=== PATIENT | male | born 1995 | race African-American/Black ===

== ENCOUNTER → 2017-06-11 15:04 | Outpatient (POV) | payer OTHER, SELFPAY ==
[2017-06-11 16:57] LABS: Basophils % 0.4 % (0.1-2.0); Eosinophils # 0.1 K/mm3 (0.0-0.4); Hematocrit 44.8 % (42.0-52.0); Hemoglobin 15.2 g/dL (14.1-18.0); Lymphocytes # 3.1 K/mm3 (0.7-4.5); Lymphocytes % 37.5 K/mm3 (10-50); Mean Corpuscular HGB Conc 33.8 g/dL (31.8-35.4); Mean Corpuscular Hemoglobin 27.6 pg (27.0-31.2); Mean Corpuscular Volume 81.7 fl (80-94); Monocytes # 0.6 K/mm3 (0.1-1.0); Monocytes % 7.2 % (1.7-9.3); Neutrophils # 4.4 K/mm3 (1.8-7.8); Neutrophils % 53.9 % (37.0-80.0); Platelet Count 297 K/mm3 (142-424); Red Blood Count 5.48 M/mm3 (4.60-6.20); Red Cell Distribution Width 13.1 % (11.5-17.5); White Blood Count 8.2 K/mm3 (4.8-10.8)
[2017-06-11 18:20] LABS: Erythrocyte Sedimentation Rate 8 mm/hr (0-15)
[2017-06-11 19:15] LABS: Alanine Aminotransferase 39 U/L (12-78); Albumin Level 4.2 gm/dL (3.4-5.0); Albumin/Globulin Ratio 1.1 (1.1-1.8); Alkaline Phosphatase 99 U/L (46-116); Anion Gap 14.7 mEq/L (5-15); Bilirubin,Total 0.3 mg/dL (0.2-1.0); Blood Urea Nitrogen 16 mg/dL (7-18); Calcium 9.1 mg/dL (8.5-10.1); Carbon Dioxide 25 mmol/L (21.0-32.0); Chloride 103 mmol/L (98-107); Creatinine,Serum 0.98 mg/dL (0.70-1.30); Estimated Glomerular Filt Rate 95 ml/min (>60); GFR (African American) 115 ML/MIN (>60); Globulin 3.7 gm/dl (1.3-3.2); Glucose 83 mg/dL (74-106); Sodium 139 mmol/L (136-145); Total Protein,Serum 7.9 gm/dL (6.4-8.2)
[2017-06-11 19:36] LABS: Aspartate Amino Transferase 26 U/L (15-37); Potassium 3.7 mmoL/L (3.5-5.1)
[2017-06-14 22:59] LABS: Blastomyces Antibody Negative (Neg:<1:1)
[2017-06-15 20:10] LABS: Aspergillus flavus Negative (Neg:<1:1); Aspergillus fumigatus Negative (Neg:<1:1); Aspergillus niger Negative (Neg:<1:1)
== END ==
PROVIDERS: Visit Provider Internal Medicine
DX: R91.8 Other nonspecific abnormal finding of lung field (principal); R59.1 Generalized enlarged lymph nodes
CPT/HCPCS: 36415; 80053; 85025; 85651; 86171

== ENCOUNTER → 2018-07-15 08:15 | Outpatient (CLI) | payer OTHER, SELFPAY ==
--- NOTE | 2018-07-15 08:29 | CT_ITS ---
CT chest w con HISTORY: Follow-up pulmonary nodule ITS.REASON: LUNG NODULE ORDERING PHYSICIAN: Any Aranda PATIENT AGE: 23 years COMPARISON: 04/30/2017 TECHNIQUE: Axial images obtained following the administration of 75 mL of Optiray 350 . Sagittal, and coronal reformatted images are also generated and reviewed. All CT scans at the facility use one or more dose reduction, viz: automated exposure control, ma/kV adjustment per patient size (including targeted exams where dose is matched to indication, i.e. head), or iterative reconstruction technique. FINDINGS: There is some soft tissue density noted in the anterior mediastinum consistent with finding tissue. Small nodes are once again identified in the mediastinum on the left and in the left hilum. This has shown some improvement compared to previous enhanced exam of 11/21/2016. There is mild gynecomastia. Minimal subpleural opacity is noted in the right lower lobe posteriorly nonspecific 6 mm. The left there are numerous noncalcified pulmonary nodules in the left upper lobe laterally. The largest of the nodular opacities is approximately 1 2-cm in width. These do not appear significantly changed possibly due to old granulomatous infection. No cavitation. No spiculation. No lobar consolidation or collapse. No effusions. Upper abdominal images are unremarkable. IMPRESSION: 1. Overall no significant change in the numerous left upper lobe nodules. The mediastinal and hilar adenopathy has shown some improvement since 11/21/2016. 2. There is a 6 mm subpleural opacity in the right lower lobe posteriorly. This is nonspecific and may be due to a small area of atelectasis.
== END ==
PROVIDERS: PCP Internal Medicine Adolescent Medicine; Visit Provider Nurse Practitioner Family
DX: R91.8 Other nonspecific abnormal finding of lung field (principal)
CPT/HCPCS: 71260

== ENCOUNTER → 2019-02-10 16:21 | Outpatient (CLI) | payer OTHER, SELFPAY ==
[2019-02-10 16:48] LABS: Basophils % 0.3 % (0.1-2.0); Eosinophils % 0.5 % (0.1-12.0); Hematocrit 46.5 % (42.0-52.0); Hemoglobin 15.7 g/dL (14.1-18.0); Lymphocytes # 3.2 K/mm3 (0.7-4.5); Lymphocytes % 41.7 % (10-50); Mean Corpuscular HGB Conc 33.7 g/dL (31.8-35.4); Mean Corpuscular Hemoglobin 28.4 pg (27.0-31.2); Mean Corpuscular Volume 84.3 fl (80-94); Mean Platelet Volume 7.9 fl (7.4-10.4); Monocytes # 0.5 K/mm3 (0.1-1.0); Monocytes % 6.4 % (1.7-9.3); Neutrophils # 3.9 K/mm3 (1.8-7.8); Platelet Count 292 K/mm3 (142-424); Red Blood Count 5.51 M/mm3 (4.60-6.20); White Blood Count 7.6 K/mm3 (4.8-10.8)
[2019-02-10 17:19] LABS: Alanine Aminotransferase 33 U/L (12-78); Albumin Level 4.2 gm/dL (3.4-5.0); Albumin/Globulin Ratio 1.1 (1.1-1.8); Alkaline Phosphatase 97 U/L (46-116); Anion Gap 14.6 mEq/L (5-15); Aspartate Amino Transferase 24 U/L (15-37); Bilirubin,Total 0.4 mg/dL (0.2-1.0); Blood Urea Nitrogen 13 mg/dL (7-18); Calcium 9.2 mg/dL (8.5-10.1); Carbon Dioxide 27 mmol/L (21.0-32.0); Chloride 101 mmol/L (98-107); Creatinine,Serum 0.94 mg/dL (0.70-1.30); Estimated Glomerular Filt Rate 98 ml/min (>60); GFR (African American) 118 ML/MIN (>60); Globulin 3.8 gm/dl (1.3-3.2); Glucose 83 mg/dL (74-106); Potassium 3.6 mmoL/L (3.5-5.1); Sodium 139 mmol/L (136-145)
[2019-02-12 08:13] LABS: Hep A Ab, IgM Negative (Negative); Hepatitis B Core Antibody IgM Negative (Negative); Hepatitis B Surface Antigen Negative (Negative)
[2019-02-14 13:21] LABS: Rapid Plasma Reagin Ab Titer Non Reactive (NonRea<1:1)
[2019-02-14 13:22] LABS: HIV Screen 4th Generation wRfx Non Reactive (Non Reactive); Hepatitis C Antibody <0.1 s/co ratio (0.0-0.9)
[2019-02-14 13:44] LABS: Neisseria gonorrhoeae, NAA Negative (Negative)
== END ==
PROVIDERS: Visit Provider Nurse Practitioner Family
DX: Z72.51 High risk heterosexual behavior (principal)
CPT/HCPCS: 36415; 80053; 80074; 85025; 86592; 86703; 87491; 87591; G0432

== ENCOUNTER → 2019-11-11 20:34 | Outpatient (CLI) | payer OTHER, SELFPAY ==
[2019-11-11 21:17] LABS: Coronavirus 19 IgG Antibody Negative (Negative); Coronavirus 19 IgM Antibody Negative (Negative)
== END ==
PROVIDERS: Visit Provider Nurse Practitioner Family
DX: Z03.818 Encounter for observation for suspected exposure to other biological agents ruled out (principal)
CPT/HCPCS: 36415; 86328

== ENCOUNTER → 2020-02-01 11:51 | Outpatient (CLI) | payer OTHER, SELFPAY ==
[2020-02-02 15:20] LABS: Covid-19 Nasal PCR Sendout Lex Not Detected
== END ==
PROVIDERS: Visit Provider Nurse Practitioner Family
DX: Z20.828 Contact with and (suspected) exposure to other viral communicable diseases (principal)
CPT/HCPCS: U0004

== ENCOUNTER 2020-04-03 19:43 | Outpatient (CLI) | payer OTHER, SELFPAY ==
[2020-04-03 19:57] VITALS: BMI 29.9
== END 2020-04-03 20:08 | disposition home or self-care (01) ==
PROVIDERS: PCP Internal Medicine Adolescent Medicine; Visit Provider Internal Medicine Adolescent Medicine
DX: Z03.818 Encounter for observation for suspected exposure to other biological agents ruled out (principal)
CPT/HCPCS: U0003

== ENCOUNTER 2020-04-13 21:25 | Emergency (ER) | payer OTHER, SELFPAY ==
[2020-04-13 21:25] VITALS: BP 165/98; PULSE 111; RESP 16; TEMP 37.9; O2SAT 98; BMI 29.1
[2020-04-13 21:55] VITALS: BP 125/70; PULSE 95; RESP 16; O2SAT 95
[2020-04-13 21:55] LABS: Basophils # 0.2 K/mm3 (0-0.2); Basophils % 1.7 % (0.1-2.0); Eosinophils # 0.1 K/mm3 (0.0-0.4); Eosinophils % 0.6 % (0.1-12.0); Hematocrit 46.6 % (42.0-52.0); Hemoglobin 16.5 g/dL (14.1-18.0); Lymphocytes # 0.7 K/mm3 (0.7-4.5); Lymphocytes % 6.9 % (10-50); Mean Corpuscular HGB Conc 35.3 g/dL (31.8-35.4); Mean Corpuscular Hemoglobin 29.1 pg (27.0-31.2); Mean Corpuscular Volume 82.3 fl (80-94); Monocytes # 1.4 K/mm3 (0.1-1.0); Monocytes % 13.9 % (1.7-9.3); Neutrophils # 7.7 K/mm3 (1.8-7.8); Neutrophils % 76.9 % (37.0-80.0); Platelet Count 263 K/mm3 (142-424); Red Blood Count 5.66 M/mm3 (4.60-6.20); Red Cell Distribution Width 13.6 % (11.5-17.5)
[2020-04-13 21:59] LABS: Chloride 105 mmol/L (98-107)
[2020-04-13 22:00] LABS: Potassium 3.7 mmoL/L (3.5-5.1); Sodium 140 mmol/L (136-145)
--- NOTE | 2020-04-13 22:01 | [facility].EDFEV ---
ED Disposition Clinical Impression: Viral infection, Febrile illness, acute Disposition: Home, Self-Care Condition on Discharge: Good Instructions: DI for Fever (Symptom) -- Adult Additional Instructions: fluids and call pcp for follow up Referrals: Iam Tan MD [Primary Care Provider] - - Critical Care Critical Care Time: No Attestation: On 04/13/20, the high probability of a clinically significant, sudden or life threatening deterioration of the following system(s) required my full and direct attention, intervention and personal management. The time I documented below is in addition to time spent performing reported procedures but includes the following listed in this critical care notation. Medical Decision Making - Medical Records Medical records reviewed: Yes: I reviewed the patient's medical records. - [place] Inquiry Pt receiving controlled substance: No Vital Signs: 04/13/20 21:25 04/13/20 21:55 04/13/20 22:55 Temperature 100.2 F H Temperature Source Oral Pulse Rate [Left Radial] 111 H 95 H 89 Respiratory Rate 16 16 16 Blood Pressure [Right Arm] 165/98 H 125/70 118/73 Blood Pressure Mean [Right Arm] 120 88 88 Blood Pressure Source [Right Arm] Automatic Cuff Automatic Cuff Automatic Cuff Blood Pressure Position [Right Arm] Sitting Sitting Sitting 02 Sat by Pulse Oximetry 98 95 99 Oxygen Delivery Method Room Air Room Air Room Air 04/13/20 23:55 04/14/20 00:55 Temperature Temperature Source Pulse Rate [Left Radial] 91 H 85 Respiratory Rate 15 16 Blood Pressure [Right Arm] 126/68 117/66 Blood Pressure Mean [Right Arm] 87 83 Blood Pressure Source [Right Arm] Automatic Cuff Blood Pressure Position [Right Arm] Sitting 02 Sat by Pulse Oximetry 98 98 Oxygen Delivery Method Room Air - Lab Data Lab results reviewed: Yes: I reviewed the patient's lab results. Lab Results 04/13/20 21:40: WBC 10.0, RBC 5.66, Hgb 16.5, Hct 46.6, MCV 82.3, MCH 29.1, MCHC 35.3, RDW 13.6, Plt Count 263, MPV 8.0, Neut % (Auto) 76.9, Lymph % (Auto) 6.9 L, Schuyler % (Auto) 13.9 H, Eos % (Auto) 0.6, Baso % (Auto) 1.7, Neut # (Auto) 7.7, Lymph # (Auto) 0.7, Schuyler # (Auto) 1.4 H, Eos # (Auto) 0.1, Baso # (Auto) 0.2 04/13/20 21:40: Sodium 140, Potassium 3.7, Chloride 105, Carbon Dioxide 25, Anion Gap 13.7, BUN 16, Creatinine 1.00, Estimated Creat Clear 154, Estimated GFR 90, Est GFR ( Amer) 109, Glucose 113 H, Calcium 9.8, Total Bilirubin 0.5, AST 40, ALT 44, Alkaline Phosphatase 105, Total Protein 8.2, Albumin 4.7, Globulin 3.5 H, Albumin/Globulin Ratio 1.3 04/13/20 21:40: Lactate 1.1 04/13/20 21:40: SARS-CoV-2 IgG Ab (Rapid) Negative, SARS-CoV-2 IgM Ab (Rapid) Negative 04/13/20 21:50: Influenza Type A Ag Negative, Influenza Type B Ag Negative 04/13/20 21:50: Group A Strep Rapid Negative Result diagrams: 04/13/20 21:40 04/13/20 21:40 Orders (Tests/Meds): ED MEDICATIONS Generic Name Dose Route Start Last Admin Trade Name Freq PRN Reason Stop Dose Admin Sodium Chloride 1,000 mls @ 999 mls/hr 04/13/20 22:00 04/13/20 21:53 Sod Chlor 0.9% 1000ml Bag IV 04/13/20 23:00 999 mls/hr .[id number] ELIZABETH Administration Discontinued Medications Generic Name Dose Route Start Last Admin Trade Name Freq PRN Reason Stop Dose Admin Ketorolac Tromethamine 30 mg 04/13/20 21:48 04/13/20 21:53 Ketorolac 30mg/Ml Vial IV 04/13/20 21:49 30 mg ONCE ONE Administration Methylprednisolone Sodium Succinate 125 mg 04/13/20 21:48 04/13/20 21:53 Methylprednisolone Sod Succ 125mg Vial IV 04/13/20 21:49 125 mg ONCE ONE Administration Ondansetron HCl 4 mg 04/13/20 21:48 04/13/20 21:53 Ondansetron 4mg/2ml Vial IV 04/13/20 21:49 4 mg ONCE ONE Administration ORDERS Category Date Time Status Covid-19 Nasal PCR ([facility]) Routine Lab 04/13/20 21:50 Received Blood Culture Stat Micro 04/13/20 21:40 Received Strep Screen Confirmation Stat Micro 04/13/20 21:50 Received Fever HPI -
[2020-04-13 22:02] LABS: Alanine Aminotransferase 44 U/L (12-78); Alkaline Phosphatase 105 U/L (38-126); Aspartate Amino Transferase 40 U/L (17-59); Bilirubin,Total 0.5 mg/dl (0.2-1.3); Blood Urea Nitrogen 16 mg/dl (9-20); Creatinine Clearance Estimated 154 mL/min (50-200); Estimated Glomerular Filt Rate 90 ml/min (>60); GFR (African American) 109 ML/MIN (>60); Lactic Acid 1.1 mmol/L (0.7-2.1)
[2020-04-13 22:03] LABS: Albumin Level 4.7 g/dl (3.5-5.0); Albumin/Globulin Ratio 1.3 (1.1-1.8); Anion Gap 13.7 mEq/L (5-15); Calcium 9.8 mg/dl (8.4-10.2); Carbon Dioxide 25 mmol/L (22.0-30.0); Globulin 3.5 g/dL (1.3-3.2); Glucose 113 mg/dl (74-100); Total Protein,Serum 8.2 g/dl (6.3-8.2)
[2020-04-13 22:09] LABS: Strep Scrn Group A (Rapid) Negative (Negative)
[2020-04-13 22:28] LABS: Coronavirus 19 IgG Antibody Negative (Negative); Coronavirus 19 IgM Antibody Negative (Negative)
--- NOTE | 2020-04-13 22:48 | PC.NURSE ---
offered blankets, updated on lab results, provided pillow for comfort. no additional requests at this time.
[2020-04-13 22:55] VITALS: BP 118/73; PULSE 89; RESP 16; O2SAT 99
[2020-04-13 23:55] VITALS: BP 126/68; PULSE 91; RESP 15; O2SAT 98
[2020-04-14 00:55] VITALS: BP 117/66; PULSE 85; RESP 16; O2SAT 98
[2020-04-14 02:02] VITALS: BP 133/60; PULSE 81; RESP 16; TEMP 37.2; O2SAT 99
== END 2020-04-14 02:07 | disposition home or self-care (01) ==
PROVIDERS: Emergency Provider Emergency Medicine; PCP Internal Medicine Adolescent Medicine
DX: U07.1 COVID-19 (principal)
CPT/HCPCS: 80053; 83605; 85025; 86328; 87040; 87275; 87276; 87430; 96365; 96366; 96375; 99284; J2405; U0003

== ENCOUNTER → 2020-10-16 17:09 | Outpatient (CLI) | payer BC, SELFPAY ==
[2020-10-19 09:15] LABS: HIV Screen 4th Generation wRfx Non Reactive (Non Reactive)
== END ==
PROVIDERS: PCP Internal Medicine Adolescent Medicine; Visit Provider Internal Medicine Adolescent Medicine
DX: Z11.4 Encounter for screening for human immunodeficiency virus [HIV] (principal)
CPT/HCPCS: 86703; G0432